=== PATIENT | female | born 1945 | race African-American/Black ===

== ENCOUNTER 2017-06-12 12:45 | Inpatient (IN) | payer OTHER ==
[~2017-06-12] VITALS: Ht 157.5 cm; Wt 108.0 kg
--- NOTE | ~2017-06-12 | CN ---
Consultation Report [facility] [address] [place]. [address] NAME: JULISSA SHAVER : 45 STATUS : ADM IN PAT#: [id number] AGE: 71 ADM/REG DATE : 06/19/17 MR#: [id number] REPORT SERV DATE: 06/21/17 DICTATED BY: ALEKSANDER GALVAN DATE: 06/21/17 REPORT STATUS : Draft TRANSCRIBED BY: OSWALDO DATE: 06/21/17 DATE OF CONSULTATION: 06/21/2017 CONSULTING PHYSICIAN: 1. Frankie Noel M.D. 2. John Washington MD. REASON FOR CONSULTATION: Abnormal ABG. IMPRESSION: 1. Hypercapnic respiratory failure. 2. Chronic obstructive pulmonary disease without exacerbation. 3. Sleep apnea. 4. Type 2 diabetes mellitus. 5. Hypertension. 6. Status post nephrectomy due to renal cell carcinoma with postoperative acute kidney injury. 7. Chronic pain syndrome. 8. Schizoaffective disorder with bipolar disorder. PLAN: The patient will be placed on intermittent BiPAP four hours on and one hour off, repeat ABG after one hour of starting the BiPAP. We will hold Demadex in light of worsening creatinine. We will also discontinue MILLIE inhibitors in light of worsening kidney function. We will obtain a two-dimensional echocardiogram as this patient had some history of congestive heart failure in the past. Gentle IV hydration will be provided to prevent congestive heart failure and close monitoring. We will obtain a BNP to further assess for volume status as well. At this time, I recommend discontinuing all sedations including morphine DIGITAL PRODUCER, oxycodone orally, and baclofen. We will place her on a low dose of oxycodone to prevent any withdrawals as she has chronic pain syndrome. I would recommend placing a Noel catheter despite the patient's refusal. We will need Nephrology's help if her creatinine does not turn around after this. This patient remains a full code. We thank you for this consultation, and we will follow with you. I will also obtain labs that include portable chest x-ray, EKG if not done. BRIEF HISTORY OF PRESENT ILLNESS: The patient is a 71-year-old female with multiple comorbidities, admitted to the Urology Service for right nephrectomy for a tumor on the kidney. Postoperatively, this patient was doing well, then suddenly became very lethargic and hard to arouse. There was some question whether she had a TIA. Dr. Noel consulted Dr. Washington. Dr. Washington came to see the patient and ordered an ABG. ABG showed a pH that was low with a pCO2 that was high. Medicine Service was asked to see the patient and help with assessment. When I see the patient, this patient appears to be falling asleep in mid-sentence. Her morphine DIGITAL PRODUCER has been discontinued. She is not able to be awake enough to give me a coherent history. She denies, however, any chest pain. She does not complain of shortness of breath. She denies any nausea or vomiting. She has not had any fever, chills during this hospitalization. No further history is obtainable from the patient. Consultation Report [place] [id number] [place]. [address] NAME: JULISSA SHAVER : 45 STATUS : ADM IN [facility]#: [id number] AGE: 71 ADM/REG DATE : 06/19/17 MR#: [id number] REPORT SERV DATE: 06/21/17 DICTATED BY: ALEKSANDER GALVAN DATE: 06/21/17 REPORT STATUS : Draft TRANSCRIBED BY: OSWALDO DATE: 06/21/17 PAST MEDICAL HISTORY: I have reviewed her old records, and according to the old records, this patient has prior history of type 2 diabetes mellitus, hypertension, sleep apnea, chronic musculoskeletal problems, and hypothyroidism. She also has a remote history of COPD. I did not see that this patient had any history of congestive heart failure. However, she has had problems with shortness of breath postoperatively in the past where volume has been an issue, and she does take a large dose of diuretics. PAST SURGICAL HISTORY: Significant for neck surgery which apparently left her with some weakness in the upper extremity and chronic back pain. There was no mention of a CVA in the past. ALLERGIES: PERSONALLY REVIEWED NOTED ON THE CHART TO NEOMYCIN, VESICARE, CEPHALEXIN, BACITRACIN, GRAMICIDIN, CIPROFLOXACIN, GABAPENTIN, LYRICA, AND BREO ELLIPTA. HOME MEDICATIONS: Included: 1. Albuterol two puffs every four hours. 2. Symmetrel 100 mg p.o. daily. 3. Amlodipine 5 mg once every morning. 4. Amoxicillin 250 mg daily. 5. Ascorbic acid 500 mg p.o. twice daily. 6. Baclofen 10 mg three times daily. 7. Coreg 25 mg twice daily. 8. Vitamin B12, 1000 mcg sublingual once daily. 9. Iron 325 mg once daily. 10.Toviaz 8 mg p.o. every morning. 11.Prozac 20 mg once every morning with 40 mg in the evening. 12.Folic acid 1 mg daily. 13.Hydralazine 50 mg three times daily. 14.Levothyroxine 50 mcg once every morning. 15.Lisinopril 40 mg twice daily. 16.Amitiza 24 mg p.o. twice daily after meals. 17.Roxicodone 15 mg every four hours. 18.Protonix 40 mg every morning. 19.Potassium 20 mEq twice daily. 20.Zantac 300 mg p.o. at bedtime. 21.Risperdal 4 mg every day at bedtime. 22.Carafate 1 g p.o. before meals. 23.Torsemide 100 mg once daily. 24.Systane eye drops. SOCIAL HISTORY: Nonsmoker. Nonalcoholic. No illicit substances. FAMILY HISTORY: No chronic health problems in the family. Consultation Report [place] [id number] [facility] [place]. [address] NAME: JULISSA SHAVER : 45 STATUS : ADM IN [facility]#: [id number] AGE: 71 ADM/REG DATE : 06/19/17 MR#: [id number] REPORT SERV DATE: 06/21/17 DICTATED BY: ALEKSANDER GALVAN. DATE: 06/21/17 REPORT STATUS : Draft TRANSCRIBED BY: OSWALDO DATE: 06/21/17 PHYSICAL EXAMINATION: GENERAL: female, lying on the bed, appears to be in moderate respiratory distress. She is arousable, but she falls asleep in mid-sentence. She is oriented to place and person. She is not oriented to time; however, she is able to tell me that the year is 2016. She is not able to locate the month nor the day of the week. VITAL SIGNS: Blood pressure is 106/50, it has consistently trended down since her surgery. She is saturating 93% on 3 L of nasal cannula. Pulse is 68, temperature is 99.4. HEENT: Head is normocephalic, atraumatic. Pupils are equal, round, and reactive to light. Extraocular muscles are intact. Sclerae anicteric. Conjunctivae normal. Oropharynx, dry mucous membranes. Tongue protrusion is midline. Uvula is midline. NECK: Supple. No jugular venous distention. No carotid bruits or thyromegaly is appreciated. No lymphadenopathy in the neck is palpable. HEART: Tachycardic, 2/6 soft systolic murmur best heard in the second intercostal space left and right parasternal border. No radiation of the murmur. PMI just inside the anterior axillary line. LUNGS: Clear to auscultation anteriorly, posterior exam not possible because of the patient's sedated state. ABDOMEN: Obese, soft, nontender, good bowel sounds. No rebound or guarding. No organomegaly. EXTREMITIES: Without cyanosis or clubbing. There may be trace edema. NEUROLOGIC: This patient is able to follow commands, but because of her lethargy, she is not able to participate in this exam. She is able to wiggle her toes on calling and is following commands. LABORATORY DATA: Most recent labs, ABG, pH of 7.28, pCO2 is 64, pO2 of 70, calculated bicarb of 28. Sodium is 136, potassium 3.8, chloride is 101, bicarbonate is 29 measured, BUN is 32, creatinine is 2.55, glucose of 89, and calcium of 8.5. White count is 15.9, hemoglobin of 9.6, hematocrit of 30, platelet count is 248,000. No left shift is noted. Once again, we thank you for this consultation. We will follow with you. ASTER/OSWALDO Aleksander Galvan M.D. / [id number] CC: Kendrick Fernandez M.D.
--- NOTE | ~2017-06-12 | OP ---
Record Of Operation [facility] [address] [place]. [address] NAME: JULISSA CAIN : 45 STATUS : ADM IN [facility]#: [id number] AGE: 71 ADM/REG DATE : 06/19/17 MR#: [id number] REPORT SERV DATE: 06/20/17 DICTATED BY: OUMAR MADERA DATE: 06/19/17 REPORT STATUS : Draft TRANSCRIBED BY: MODL DATE: 06/19/17 DATE OF PROCEDURE: 06/19/2017 PREOPERATIVE DIAGNOSES: 1. Right renal mass. 2. Atrophic right kidney. POSTOPERATIVE DIAGNOSES: 1. Right renal mass. 2. Atrophic right kidney. PROCEDURE PERFORMED: Laparoscopic right nephrectomy (hand assisted). ANESTHESIA: General. BLOOD LOSS: 200 mL. SPECIMEN: Right kidney with proximal ureter. COMPLICATIONS: None. DRAINS: None. INDICATION: Mrs. Cain is a 71-year-old with known atrophic right kidney. She had left kidney stones treated via ureteroscopy last year. She has known history of malignant hyperthermia. CT scan showed a right upper pole renal lesion. On ultrasound, this is a solid vascular lesion. Right kidney measured about 5 cm. Mass is 3 cm at the upper pole. There is no evidence of any metastatic disease. She presents for laparoscopic right total nephrectomy for presumed right T1 renal cell carcinoma. She has had a Mag-3 renal scan showing very poor function of this right kidney. TECHNIQUE: Informed consent was obtained. She was brought to the operating room. Ancef was given preop. General endotracheal anesthesia was administered using malignant hyperthermia precautions. After adequate general anesthesia was administered, Noel catheter was placed as well, and she was positioned in the left lateral decubitus position with the bed flexed. Care was taken to pad all pressure points. The abdomen was prepped and draped in a sterile fashion. I obtained pneumoperitoneum with a Veress needle. Passes were made in the right upper quadrant and in the right lower quadrant prior to adequate pneumoperitoneum. I placed a 12 mm trocar using a Visiport in the right lower quadrant. Inspection showed severe adhesive disease in the abdomen. Under direct vision in right upper quadrant, 12 mm trocar was placed. The adhesions were lysed sharply for approximately one hour. At this point, the bowel was reflected medially. I was able to identify the liver that was severely adhesed to the anterior abdominal wall. An additional right paramedian 12 mm trocar was placed, and laparoscopic mobilization of the right retroperitoneum was undertaken. The lateral attachments of the kidney were taken down Record Of Operation [address] [place]. [address] NAME: JULISSA CAIN : 45 STATUS : ADM IN PAT#: [id number] AGE: 71 ADM/REG DATE : 06/19/17 MR#: [id number] REPORT SERV DATE: 06/20/17 DICTATED BY: OUMAR MADERA DATE: 06/19/17 REPORT STATUS : Draft TRANSCRIBED BY: OSWALDO DATE: 06/19/17 during mobilization of adhesions. The vena cava was identified. The kidney repeatedly fell into the mid abdomen. I made slow progress but felt that converting to a hand assist approach was appropriate. The right lower quadrant 8 cm incision was made. Fascia was divided, and a GelPort was placed. I was able to palpate the small kidney, this had longer than average renal vasculature associated with it. So I had to repeatedly fall with gravity towards the patient's midline. The ureter was identified and elevated off the vena cava, it was divided with andrea. I repeatedly used blunt dissection to create windows anterior to the vena cava, and the pedicles were either divided with Harmonic scalpel or vascular stapling loads of the Endo- STAR. At the renal hilum, the artery and vein were divided en bloc. Tumor was palpable and visible at the right upper pole. Portion of the adrenal gland was taken with the specimen as was adhered to the upper pole. I removed the specimen and sent this for permanent pathologic analysis. The renal hilum was inspected. Hemostasis was confirmed. The right renal fossa was irrigated. I placed a 5 mm trocar in the right lateral abdomen, and a drain was placed through this. I closed the 12 mm trocars with 0-Vicryl utilizing a David- Karon port closure device. Sponge and needle counts were correct. I removed the GelPort. The right lower quadrant GelPort incision was closed with running #1 PDS suture with additional 0-Vicryl internal retention sutures. All wounds were irrigated. Subcutaneous tissues were closed with interrupted 2-0 Vicryl. The skin was closed with subcuticular Monocryl. She was taken to the recovery room in satisfactory condition. MO/OSWALDO Oumar Madera M.D. / [id number] CC: Oumar Madera M.D.
--- NOTE | ~2017-06-12 | CN ---
Consultation Report [facility] [address] [place]. [address] NAME: JULISSA SHAVER : 45 STATUS : ADM IN PAT#: [id number] AGE: 71 ADM/REG DATE : 06/19/17 MR#: [id number] REPORT SERV DATE: 06/21/17 DICTATED BY: DATE: REPORT STATUS : Draft TRANSCRIBED BY: MODL DATE: 06/21/17 NEUROLOGY CONSULTATION DATE OF CONSULTATION: 06/21/2017 REASON FOR CONSULT: Encephalopathy. HISTORY OF PRESENT ILLNESS: This is a 71-year-old female, admitted to [facility] on 06/19/2017, where the patient has had right kidney removal secondary to renal mass. The patient's pathology is currently pending. Otherwise, the patient was doing well post surgery, was talking, no more mental status until the morning of 06/21/2017. The patient woke up with disorientation. Does not know the year and the month and was noted to be lethargic and does not seem to recognize family and friends as readily as she should be, although, the patient was still oriented to place. The patient's family denies similar events in the past. Otherwise, denies any notable new focal deficits but was noted to have generalized weakness. The patient's symptom persisted without significant improvement. Review of the patient's medication does not demonstrate any obvious etiology for the patient's symptom. The patient does take Risperdal 4 mg p.o. at bedtime, which the patient's family is not aware for what reason the patient is taking the medication. Otherwise, no seizure-like activity was noted by family members. The patient at baseline does not have any cognitive deficits or memory difficulties prior to hospitalization. Prior to the hospitalization, no recent illness, fever, chills, nausea, vomiting, chest pain, or shortness of breath was noted. The patient's morphine SURGICAL SUPERVISOR has since been discontinued and there is no records of SURGICAL SUPERVISOR usage prior to the patient's confusion state. PAST MEDICAL HISTORY: Significant for diabetes, hypertension, sleep apnea, musculoskeletal problem, as well as hypothyroidism. FAMILY HISTORY: No significant family history was reported by the patient's family. ALLERGIES: THE PATIENT WAS NOTED TO HAVE MULTIPLE DRUG ALLERGIES INCLUDING KEFLEX, VESICARE, BACITRACIN, WELL CIPROFLOXACIN, GABAPENTIN, LYRICA, AND NEOMYCIN. SOCIAL HISTORY: The patient was noted to have no tobacco, alcohol, or recreational drug usage per medical record. MEDICATIONS: The patient's current hospital medications consist of , hydralazine, Carafate, Coreg, torsemide, Dulcolax, DuoNeb, iron sulfate, folic acid, heparin, baclofen, Norvasc, Pepcid, potassium, lisinopril, Protonix, Prozac, Reglan, Risperdal, amantadine, Synthroid, vitamin B12, and vitamin C. The patient's morphine SURGICAL SUPERVISOR pump has since been discontinued prior to evaluation, although, it does not seem the patient has been using morphine SURGICAL SUPERVISOR pump. The patient otherwise is not receiving any p.r.n. narcotic pain medication. Consultation Report [place] [id number] [place]. [address] NAME: JULISSA SHAVER : 45 STATUS : ADM IN [facility]#: [id number] AGE: 71 ADM/REG DATE : 06/19/17 MR#: [id number] REPORT SERV DATE: 06/21/17 DICTATED BY: DATE: REPORT STATUS : Draft TRANSCRIBED BY: MODL DATE: 06/21/17 REVIEW OF SYSTEMS: Unable to be obtained secondary to patient's mental status. PHYSICAL EXAMINATION: VITAL SIGNS: At the time of evaluation, the patient was noted to have vital signs with T- max of 99.5, heart rate of 66-84, respirations of 15-22, and blood pressure of 106-137/50- 67. GENERAL: The patient is well developed, well nourished, in no acute distress. CARDIOVASCULAR: Regular rate and rhythm. No carotid bruits were otherwise auscultated. PULMONARY: Clear to auscultation bilaterally. NEUROLOGICAL: Generally, the patient is obtunded, is arousable with verbal and tactile stimulation. Also, the patient was noted to have significant difficulties in maintaining arousal. The patient is oriented to person as well as place and year, but was not to month. The patient was noted to have verbal perseverance as well as decreased attention span. At the time of evaluation, was able to follow some simple commands but had difficulties with complex commands, difficulty with compliance with registration and unable to perform recall. Dysarthria was otherwise noted at the time of evaluation. Cranial nerves 2 through 12. Pupils are equal, round, and reactive to light. Extraocular eye movement was noted to be intact with intact blink to threat response. The patient reports symmetrical facial sensation, was noted to have roughly symmetrical facial expression. Midline tongue. Normal palatal movement. Decreased hearing in bilateral ears. The patient demonstrated trace movement to bilateral upper and lower extremity strength. Also, the patient demonstrated grimace to noxious stimulation in all four extremities. Deep tendon reflex was 1+ throughout. No clear ataxia was noted although formal [id number]-vo-bevb examination was unable to be performed due to the patient's mental status. Gait was not evaluated secondary to patient's mental status. LABORATORY STUDIES: Demonstrated white blood cell count of 15.9, hemoglobin of 9.6, hematocrit of 30.9, and platelet count of 248. Chemistry panel: Sodium 136, potassium 3.7, chloride 101, bicarb 29, BUN of 32, creatinine of 2.55, glucose of 89, calcium of 8.5. No neuro imaging was otherwise obtained at the time of evaluation. IMPRESSION: Encephalopathy. The patient was noted to be obtunded and difficulty in maintaining arousal. Question of medication versus metabolic etiology. We will check MRI of the brain without contrast. Also, agree with discontinue morphine SURGICAL SUPERVISOR. We will check serum ammonia, TSH, and free T4 as well as vitamin B12, folate, procalcitonin level. We will also check ABG. RECOMMENDATION: 1. ABG. 2. Agree with discontinue morphine SURGICAL SUPERVISOR. 3. Ammonia, TSH, free T4, vitamin B12, folate, procalcitonin level with morning labs. 4. MRI of the brain without contrast. 5. We will consider EEG. 6. If no other etiology was found, may consider decrease Risperdal. Consultation Report [facility] [address] [place]. [address] NAME: JULISSA SHAVER : 45 STATUS : ADM IN [facility]#: [id number] AGE: 71 ADM/REG DATE : 06/19/17 MR#: [id number] REPORT SERV DATE: 06/21/17 DICTATED BY: DATE: REPORT STATUS : Draft TRANSCRIBED BY: MODL DATE: 06/21/17 [facility]/MODL John Washington MD / [id number] CC: Kendrick Fernandez M.D.
[~2017-06-12 12:45] MED LIST: ALIGN PO; AMOX250 PO; APRES50 PO; BREO ELLIPTA INH; CALTRA600D PO; CARASPUDL PO; CARDIZEM LA360 MG PO; CITRACAL PO; COG2 PO; COGEN1 PO; COREG12 PO; COREG25 PO; D100 PO; DEMA100; DEMA100 PO; DITROXL5 PO; DSS PO; ELDERTONIC PO; ENABLEX; FERROUS SULF325 M1 PO; FISH-EPA1000 MG PO; FLEX PO; FLEXERIL; FOLIC PO; HCTZ25B PO; HYDROCHLOROT25 MG PO; IRON325 MG PO; KDUR10 PO; KDUR20 PO; KLOR-CON M2020 MEQ PO; KRILL OIL PO; LIOR10 PO; LISINOPRIL40 MG PO; LORT7 PO; LORTAB10 PO; MAG OXIDE250 MG PO; MIRALAXPKT PO; MULTIVITAMI1 PO; NORV10 PO; NORV5 PO; PERCOCET1 TA2 PO; PERCOCET1 TA4 PO; PR25 PO; PR25R PR; PREV30 PO; PRILO PO; PRILOSEC40 MG PO; PRIN20 PO; PROTONIX PO; PROVHFA INH; PROZ10 PO; PROZAC PO; PROZAC40 MG PO; RANITIDINE300 MG PO; REM15 PO; RISP1 PO; RISP3 PO; RISP4 PO; RISPERDAL; ROXICODONE15 MG PO; SPIRO25 PO; SUCR PO; SYMM100 PO; SYN.025B PO; SYN.05 PO; SYN1 PO; THERAPEUTIC PO; TOVIAZ8 MG PO; TRILEP150 PO; TRILEP300 PO; VESICARE10 MG PO; VITAMIN B-121000 MC1 SL; VITAMIN B12; VITC500 PO; VITD PO; VITE PO; ZANTAC 150 PO; ZESTORETIC1 TA1 PO; [UNRECOGNIZED DRUG - OTHER] PO
[2017-06-17] MEDS ORDERED: PROZAC PO (13:36)
[2017-06-17] MEDS ORDERED: FERROUS SULF325 M1 PO (13:41)
[2017-06-17] MEDS ORDERED: [UNRECOGNIZED DRUG - OTHER] OPH (13:42)
[2017-06-17] MEDS ORDERED: SUCR PO (13:45)
[2017-06-17] MEDS ORDERED: AMITIZA24 PO (13:46)
[2017-06-18 13:26] LABS: BASOPHILS 0.2 %; BASOPHILS ABSOLUTE 0.02 10/3/uL (0.0-0.16); EOSINOPHILS 2.4 %; EOSINOPHILS ABSOLUTE 0.29 10/3/uL (0.0-0.53); HEMATOCRIT 35.5 % (36.0-48.0); HEMOGLOBIN 11.3 g/dL (12.0-16.0); IMMATURE GRANULOCYTES 0.3 %; IMMATURE GRANULOCYTES ABSOLUTE 0.03 10/3/uL (0.0-0.11); LYMPHOCYTES 39.8 %; LYMPHOCYTES ABSOLUTE 4.77 10/3/uL (0.67-4.30); MEAN CORPUS HGB CONC 31.8 g/dL (32.0-36.0); MEAN CORPUSCULAR HEMOGLOB 28.7 pg (26.0-34.0); MEAN PLATELET VOLUME 9.8 fL (9.2-13.0); MONOCYTES 12.4 %; MONOCYTES ABSOLUTE 1.49 10/3/uL (0.21-1.20); NEUTROPHILS 44.9 %; PLATELET COUNT 280 10/3/uL (150-400); RBC DISTRIBUTION WIDTH 14.3 % (12.0-16.0); RED CELL COUNT 3.94 10/6/uL (4.0-5.6)
[2017-06-18 13:28] LABS: MANUAL DIFF NO %; MEAN CORPUSCULAR VOLUME 90.1 fL (80-100)
[2017-06-18 13:40] LABS: A/G RATIO 0.6 (0.7-1.9); ALBUMIN 3.1 G/DL (3.5-5.0); ALKALINE PHOSPHATASE 85 U/L (45-117); BUN (BLOOD UREA NITROGEN) 32 MG/DL (6-23); CALCIUM, SERUM 9.6 MG/DL (8.5-10.4); CHLORIDE, SERUM 101 MMOL/L (96-112); CO2 (CARBON DIOXIDE) 29 MMOL/L (24-34); GFR AFRICAN AMERICAN 25 ML/MIN (>=60); GFR NON AFRICAN AMERICAN 22 ML/MIN (>=60); GLOBULIN 5.1 G/DL (2.5-4.1); GLUCOSE, SERUM 115 MG/DL (60-99); POTASSIUM, SERUM 3.2 MMOL/L (3.5-5.3); SGOT(AST) 25 U/L (5-40); SGPT(ALT) 26 U/L (5-65); SODIUM, SERUM 139 MMOL/L (135-148); TOTAL BILIRUBIN 0.5 MG/DL (0-1.2); TOTAL PROTEIN 8.2 G/DL (6.0-8.5)
[2017-06-20 07:54] LABS: BASOPHILS 0.1 %; BASOPHILS ABSOLUTE 0.02 10/3/uL (0.0-0.16); EOSINOPHILS 0.2 %; EOSINOPHILS ABSOLUTE 0.03 10/3/uL (0.0-0.53); HEMATOCRIT 31.2 % (36.0-48.0); IMMATURE GRANULOCYTES 0.3 %; IMMATURE GRANULOCYTES ABSOLUTE 0.05 10/3/uL (0.0-0.11); LYMPHOCYTES 21.9 %; LYMPHOCYTES ABSOLUTE 3.71 10/3/uL (0.67-4.30); MANUAL DIFF NO %; MEAN CORPUS HGB CONC 32.1 g/dL (32.0-36.0); MEAN CORPUSCULAR VOLUME 90.4 fL (80-100); MEAN PLATELET VOLUME 9.5 fL (9.2-13.0); MONOCYTES 11.6 %; MONOCYTES ABSOLUTE 1.96 10/3/uL (0.21-1.20); NEUTROPHILS 65.9 %; NEUTROPHILS ABSOLUTE 11.18 10/3/uL (2.02-8.40); PLATELET COUNT 249 10/3/uL (150-400); RBC DISTRIBUTION WIDTH 14.6 % (12.0-16.0); RED CELL COUNT 3.45 10/6/uL (4.0-5.6)
[2017-06-20 08:05] LABS: BUN (BLOOD UREA NITROGEN) 32 MG/DL (6-23); CHLORIDE, SERUM 101 MMOL/L (96-112); CO2 (CARBON DIOXIDE) 27 MMOL/L (24-34); CREATININE 2.29 MG/DL (0.55-1.02); GFR AFRICAN AMERICAN 24 ML/MIN (>=60); GFR NON AFRICAN AMERICAN 21 ML/MIN (>=60); GLUCOSE, SERUM 92 MG/DL (60-99); POTASSIUM, SERUM 3.8 MMOL/L (3.5-5.3); SODIUM, SERUM 137 MMOL/L (135-148)
[2017-06-20 08:06] LABS: CALCIUM, SERUM 8.6 MG/DL (8.5-10.4)
[2017-06-21 05:15] LABS: BASOPHILS 0.1 %; BASOPHILS ABSOLUTE 0.02 10/3/uL (0.0-0.16); EOSINOPHILS 2.4 %; EOSINOPHILS ABSOLUTE 0.38 10/3/uL (0.0-0.53); HEMATOCRIT 30.9 % (36.0-48.0); HEMOGLOBIN 9.6 g/dL (12.0-16.0); IMMATURE GRANULOCYTES 0.5 %; IMMATURE GRANULOCYTES ABSOLUTE 0.08 10/3/uL (0.0-0.11); LYMPHOCYTES 23.9 %; LYMPHOCYTES ABSOLUTE 3.81 10/3/uL (0.67-4.30); MEAN CORPUS HGB CONC 31.1 g/dL (32.0-36.0); MEAN CORPUSCULAR HEMOGLOB 28.5 pg (26.0-34.0); MEAN CORPUSCULAR VOLUME 91.7 fL (80-100); MEAN PLATELET VOLUME 9.6 fL (9.2-13.0); MONOCYTES 16.8 %; MONOCYTES ABSOLUTE 2.67 10/3/uL (0.21-1.20); NEUTROPHILS 56.3 %; NEUTROPHILS ABSOLUTE 8.96 10/3/uL (2.02-8.40); PLATELET COUNT 248 10/3/uL (150-400); RBC DISTRIBUTION WIDTH 14.8 % (12.0-16.0); RED CELL COUNT 3.37 10/6/uL (4.0-5.6); WHITE BLOOD CELLS 15.9 10/3/uL (4.5-10.5)
[2017-06-21 05:16] LABS: MANUAL DIFF NO %
[2017-06-21 05:23] LABS: BUN (BLOOD UREA NITROGEN) 32 MG/DL (6-23); CALCIUM, SERUM 8.5 MG/DL (8.5-10.4); CHLORIDE, SERUM 101 MMOL/L (96-112); CO2 (CARBON DIOXIDE) 29 MMOL/L (24-34); CREATININE 2.55 MG/DL (0.55-1.02); GFR AFRICAN AMERICAN 21 ML/MIN (>=60); GFR NON AFRICAN AMERICAN 18 ML/MIN (>=60); GLUCOSE, SERUM 89 MG/DL (60-99); POTASSIUM, SERUM 3.7 MMOL/L (3.5-5.3); SODIUM, SERUM 136 MMOL/L (135-148)
[2017-06-21 16:00] LABS: ALLENS TEST Pos; BE (BASE EXCESS) 0.7 MEQ/L (0 +/- 2.5); CARBOXYHEMOGLOBIN 0.7 % (0-3); DEVICE NC; HCO3 (ACTUAL BICARBONATE) 28.3 MEQ/L (23-27); HEMOBLOGIN CONTENT 10.2 G/DL (12-16); INSTRUMENT SERIAL # 8083; METHEMOGLOBIN 0.2 % (0-3); O2 CONTENT 13.5 VOL% (18-24); PCO2 (CO2 TENSION) 62 MMHG (35-45); PO2 (O2 TENSION) 70 MMHG (79-93); SAMPLE Arterial; pH 7.28 (7.37-7.43)
[2017-06-21 18:44] LABS: ALLENS TEST Pos; BE (BASE EXCESS) 0.7 MEQ/L (0 +/- 2.5); BIPAP 15/7 cm.H2O; CARBOXYHEMOGLOBIN 0.7 % (0-3); HCO3 (ACTUAL BICARBONATE) 27.3 MEQ/L (23-27); INSTRUMENT SERIAL # 8083; METHEMOGLOBIN 0.1 % (0-3); O2 CONTENT 13.7 VOL% (18-24); PCO2 (CO2 TENSION) 54 MMHG (35-45); PO2 (O2 TENSION) 89 MMHG (79-93); SAMPLE Arterial; pH 7.32 (7.37-7.43)
[2017-06-22 07:01] LABS: BASOPHILS 0.1 %; BASOPHILS ABSOLUTE 0.02 10/3/uL (0.0-0.16); EOSINOPHILS 2.6 %; EOSINOPHILS ABSOLUTE 0.41 10/3/uL (0.0-0.53); HEMATOCRIT 28.7 % (36.0-48.0); HEMOGLOBIN 9.1 g/dL (12.0-16.0); IMMATURE GRANULOCYTES 0.4 %; IMMATURE GRANULOCYTES ABSOLUTE 0.06 10/3/uL (0.0-0.11); LYMPHOCYTES ABSOLUTE 3.27 10/3/uL (0.67-4.30); MEAN CORPUS HGB CONC 31.7 g/dL (32.0-36.0); MEAN CORPUSCULAR HEMOGLOB 28.8 pg (26.0-34.0); MEAN CORPUSCULAR VOLUME 90.8 fL (80-100); MEAN PLATELET VOLUME 9.4 fL (9.2-13.0); NEUTROPHILS 57.9 %; NEUTROPHILS ABSOLUTE 9.03 10/3/uL (2.02-8.40); PLATELET COUNT 228 10/3/uL (150-400); RBC DISTRIBUTION WIDTH 14.9 % (12.0-16.0); RED CELL COUNT 3.16 10/6/uL (4.0-5.6); WHITE BLOOD CELLS 15.6 10/3/uL (4.5-10.5)
[2017-06-22 07:08] LABS: MANUAL DIFF NO %
[2017-06-22 07:48] LABS: PROCALCITONIN 0.39 ng/mL (<0.5)
[2017-06-22 07:50] LABS: BUN (BLOOD UREA NITROGEN) 32 MG/DL (6-23); CALCIUM, SERUM 8.4 MG/DL (8.5-10.4); CHLORIDE, SERUM 105 MMOL/L (96-112); CO2 (CARBON DIOXIDE) 26 MMOL/L (24-34); CREATININE 2.44 MG/DL (0.55-1.02); FOLATE 53.2 NG/ML (>5.2); FREE T4 1.16 NG/DL (0.76-1.46); GFR AFRICAN AMERICAN 22 ML/MIN (>=60); GFR NON AFRICAN AMERICAN 19 ML/MIN (>=60); GLUCOSE, SERUM 88 MG/DL (60-99); SODIUM, SERUM 138 MMOL/L (135-148); ULTRASENSITIVE TSH 0.418 MCIU/ML (0.358-3.740)
[2017-06-22 18:59] LABS: ASCORBIC ACID (UR NOT ORDER) 20 (NEG); BILIRUBIN, URINE NEGATIVE (NEG); KETONE, URINE NEGATIVE (NEG); LEUKOCYTE ESTERASE(NOT OR TRACE (NEG); WBC (NOT ORDERED) (RFLEX) 7 (0-5)
[2017-06-23 07:27] LABS: BASOPHILS 0.2 %; BASOPHILS ABSOLUTE 0.03 10/3/uL (0.0-0.16); EOSINOPHILS 2.5 %; EOSINOPHILS ABSOLUTE 0.35 10/3/uL (0.0-0.53); HEMATOCRIT 29.7 % (36.0-48.0); HEMOGLOBIN 9.4 g/dL (12.0-16.0); IMMATURE GRANULOCYTES 0.2 %; IMMATURE GRANULOCYTES ABSOLUTE 0.03 10/3/uL (0.0-0.11); LYMPHOCYTES 28.5 %; LYMPHOCYTES ABSOLUTE 4.06 10/3/uL (0.67-4.30); MEAN CORPUS HGB CONC 31.6 g/dL (32.0-36.0); MEAN CORPUSCULAR HEMOGLOB 28.7 pg (26.0-34.0); MEAN CORPUSCULAR VOLUME 90.5 fL (80-100); MEAN PLATELET VOLUME 9.5 fL (9.2-13.0); MONOCYTES 18.2 %; MONOCYTES ABSOLUTE 2.59 10/3/uL (0.21-1.20); NEUTROPHILS 50.4 %; NEUTROPHILS ABSOLUTE 7.18 10/3/uL (2.02-8.40); PLATELET COUNT 255 10/3/uL (150-400); RBC DISTRIBUTION WIDTH 14.6 % (12.0-16.0); RED CELL COUNT 3.28 10/6/uL (4.0-5.6); WHITE BLOOD CELLS 14.2 10/3/uL (4.5-10.5)
[2017-06-23 07:33] LABS: MANUAL DIFF NO %
[2017-06-23 07:38] LABS: BUN (BLOOD UREA NITROGEN) 29 MG/DL (6-23); CALCIUM, SERUM 9.1 MG/DL (8.5-10.4); CHLORIDE, SERUM 105 MMOL/L (96-112); CO2 (CARBON DIOXIDE) 26 MMOL/L (24-34); CREATININE 2.09 MG/DL (0.55-1.02); GFR AFRICAN AMERICAN 27 ML/MIN (>=60); GFR NON AFRICAN AMERICAN 23 ML/MIN (>=60); GLUCOSE, SERUM 80 MG/DL (60-99); POTASSIUM, SERUM 4.4 MMOL/L (3.5-5.3); SODIUM, SERUM 140 MMOL/L (135-148)
[2017-06-24 05:58] LABS: BUN (BLOOD UREA NITROGEN) 30 MG/DL (6-23); CALCIUM, SERUM 9.7 MG/DL (8.5-10.4); CHLORIDE, SERUM 100 MMOL/L (96-112); CO2 (CARBON DIOXIDE) 29 MMOL/L (24-34); CREATININE 2.02 MG/DL (0.55-1.02); GFR AFRICAN AMERICAN 28 ML/MIN (>=60); GFR NON AFRICAN AMERICAN 24 ML/MIN (>=60); GLUCOSE, SERUM 89 MG/DL (60-99); PHOSPHORUS, SERUM 2.7 MG/DL (2.5-4.5); POTASSIUM, SERUM 4.3 MMOL/L (3.5-5.3); SODIUM, SERUM 136 MMOL/L (135-148)
[2017-06-24 05:59] LABS: ALBUMIN 2.1 G/DL (3.5-5.0)
== END 2017-06-26 13:28 | disposition home or self-care (01) | DRG 656 ==
LOC: ENRESERV → CANRESERV → ENRESERVDT → ENRESERVTM → SDC/OF 06-19 11:23 → 4SO 06-19 11:23
PROVIDERS: Internal Medicine; Urology
PROC: 0TT04ZZ Resection of Right Kidney, Percutaneous Endoscopic Approach (ICD-10-PCS; principal; 2017-06-19 12:45)
DX: D49.511 Neoplasm of unspecified behavior of right kidney (principal); G93.40 Encephalopathy, unspecified; J96.01 Acute respiratory failure with hypoxia; N17.9 Acute kidney failure, unspecified; I69.354 Hemiplegia and hemiparesis following cerebral infarction affecting left non-dominant side; J44.1 Chronic obstructive pulmonary disease with (acute) exacerbation; E11.9 Type 2 diabetes mellitus without complications; N26.1 Atrophy of kidney (terminal); E03.9 Hypothyroidism, unspecified; G47.33 Obstructive sleep apnea (adult) (pediatric); I10 Essential (primary) hypertension; F25.0 Schizoaffective disorder, bipolar type
CPT/HCPCS: 36600; 71010; 80048; 80053; 80069; 81001; 82140; 82330; 82607; 82746; 82803; 82805; 82947; 82962; 83605; 83735; 83880; 84132; 84145; 84295; 84439; 84443; 85014; 85025; 87040; 88307; 93005; 93306; 94640; 94660; 97110-GP; 97116-GP; 97161-GP; 97165-GO; 97530-GP; A9270-GY; J0360; J0690; J2250; J2270; J2370; J2405; J2710; J2795; J3010